=== PATIENT | female | born 1990 | race Caucasian/White ===

== ENCOUNTER 2022-03-26 12:08 | Emergency (ER) | payer MEDICAID ==
[~2022-03-26] VITALS: Ht 157.5 cm; Wt 107.0 kg
[~2022-03-26 12:08] MED LIST: IBUP-2030 PO; ONDA4TAB50 PO; TOPUD PO
[2022-03-26] MEDS ORDERED: HYDROCODONE/ACETAMINOPHEN 5/325MG TABLET PO STA (14:57)
[2022-03-26 15:27] LABS: BASOPHILS % 0.5 % (0.0-2.0); EOSINOPHILS % 0.8 % (0.0-5.0); HEMATOCRIT. 41.7 % (36.0-48.0); HEMOGLOBIN. 14.4 g/dL (12.0-16.0); LYMPHOCYTES % 23.1 % (20.0-50.0); MEAN CORPUSCULAR HEMOGLOBIN 29.3 pg (28.0-32.0); MEAN PLATELET VOLUME 7.9 fl (7.4-10.4); MONOCYTES % 5.3 % (2.0-8.0); NEUTROPHILS % 70.3 % (40.0-76.0); PLATELET 309 x1000/uL (130-400); RED BLOOD CELL COUNT 4.91 mill/uL (4.2-5.4); RED CELL DISTRIBUTION WIDTH 13.3 % (11.6-14.6)
[2022-03-26 15:47] LABS: HCG SCREEN NEGATIVE
[2022-03-26 16:26] LABS: CHLORIDE 107 mEq/L (98-107)
[2022-03-26] MEDS ORDERED: MORPHINE SULFATE 4 MG/ML CPJ (NOT FOR IM USE) IV STA (16:31)
[2022-03-26] MEDS ORDERED: ONDANSETRON HCL 4MG/2ML INJ IV STA (16:31)
[2022-03-26] MEDS ORDERED: SODIUM CHLORIDE 0.9% 1,000 ML IV ONE (16:45)
[2022-03-26] MEDS ORDERED: PIPERACILLIN/TAZ 3.375G PREMIX 50 ML IV ONE (16:45)
[2022-03-26] MEDS ORDERED: ACETAMINOPHEN 325MG TABLET PO ONE (17:00)
[2022-03-26 20:00] VITALS: BP 129/77
== END 2022-03-26 22:50 | disposition left against medical advice (07) ==
LOC: ER 12:08 → EDBEDREQ 19:01 → EDBEDREQTM 19:01 → ER 22:50 → CANBEDREQ 03-27 01:12
DX: K80.20 Calculus of gallbladder without cholecystitis without obstruction (principal)
CPT/HCPCS: 36415; 76705; 80053; 83690; 84703; 85025; 96365; 96366; 99284; J2543; J7030; J2270; J2405

== ENCOUNTER 2022-03-28 13:41 | Inpatient (IN) | payer MEDICAID ==
[~2022-03-28] VITALS: Ht 160 cm; Wt 79.8 kg
[2022-03-28] MEDS ORDERED: ONDANSETRON HCL 4MG/2ML INJ IV STA (16:02)
[2022-03-28] MEDS ORDERED: MORPHINE SULFATE 4 MG/ML CPJ (NOT FOR IM USE) IV STA (16:02)
[2022-03-28 16:15] LABS: BASOPHILS % 0.6 % (0.0-2.0); EOSINOPHILS % 1.3 % (0.0-5.0); HEMOGLOBIN. 14.3 g/dL (12.0-16.0); LYMPHOCYTES % 17.3 % (20.0-50.0); MEAN CORPUSCULAR HEMOGLOBIN 29.3 pg (28.0-32.0); MEAN CORPUSCULAR VOLUME 86.2 fL (81.0-99.0); MEAN PLATELET VOLUME 7.6 fl (7.4-10.4); MONOCYTES % 5.7 % (2.0-8.0); NEUTROPHILS % 75.1 % (40.0-76.0); PLATELET 314 x1000/uL (130-400); RED BLOOD CELL COUNT 4.88 mill/uL (4.2-5.4); RED CELL DISTRIBUTION WIDTH 13.3 % (11.6-14.6)
[2022-03-28] MEDS ORDERED: SODIUM CHLORIDE 0.9% 1,000 ML IV ONE (16:15)
[2022-03-28 16:24] LABS: INR 1.1; PROTHROMBIN TIME 11.8 sec (9.6-11.0)
[2022-03-28 16:25] LABS: CHLORIDE 108 mEq/L (98-107)
[2022-03-28 16:28] LABS: HCG SCREEN NEGATIVE
[2022-03-28] MEDS ORDERED: PIPERACILLIN/TAZ 3.375G PREMIX 50 ML IV ONE (18:45)
[2022-03-28] MEDS ORDERED: MORPHINE SULFATE 4 MG/ML CPJ (NOT FOR IM USE) IV ONE (19:00)
[2022-03-29] VITALS: BP 141/83
[2022-03-29] MEDS ORDERED: MORPHINE SULFATE 4 MG/ML CPJ (NOT FOR IM USE) IV PRN ×2 (05:45→11:00)
[2022-03-29] MEDS ORDERED: HYDROCODONE/ACETAMINOPHEN 5/325MG TABLET PO PRN ×2 (05:45→11:00)
[2022-03-29 08:00] VITALS: BP 137/80
[2022-03-29] MEDS ORDERED: DEXT 5%/0.45% NACL 1000ML 1,000 ML IV SCH (08:00)
[2022-03-29] MEDS: LEVOFLOXACIN 500MG PREMIX 100 ML IV SCH ×2 (08:00→09:11)
[2022-03-29] MEDS ORDERED: ONDANSETRON HCL 4MG/2ML INJ IV PRN ×2 (08:30→11:00)
[2022-03-29] MEDS ORDERED: MORPHINE SULFATE 2 MG/ML CPJ (NOT FOR IM USE) IV PRN (11:00)
[2022-03-29] MEDS ORDERED: NALOXONE HCL 0.4MG/ML VIAL IV PRN (11:00)
[2022-03-29] MEDS ORDERED: PROPOFOL 200MG/20ML VIAL IV ONE (11:32)
[2022-03-29] MEDS ORDERED: ROCURONIUM BROMIDE 10MG/ML VIAL 5ML IV ONE (11:33)
[2022-03-29] MEDS ORDERED: MIDAZOLAM HCL 2 MG/2 ML VIAL ONE (11:33)
[2022-03-29] MEDS ORDERED: BUPIVACAINE HCL/PF 0.5% (5MG/ML) 30ML ONE (11:46)
[2022-03-29] MEDS ORDERED: SKIN ADHESIVE 0.7 GM EA TOP ONE (11:46)
[2022-03-29] MEDS ORDERED: SUCCINYLCHOLINE CHLORIDE 200MG/10ML IV ONE (11:50)
[2022-03-29] MEDS ORDERED: KETOROLAC 30MG/ML VIAL ONE ×2 (11:51→12:21)
[2022-03-29] MEDS ORDERED: DEXAMETHASONE 4MG/ML 1ML VIAL ONE (11:51)
[2022-03-29] MEDS ORDERED: LIDOCAINE HCL 1% 10 MG/ML 10ML VIAL ONE (11:51)
[2022-03-29] MEDS ORDERED: ONDANSETRON HCL 4MG/2ML INJ ONE (11:51)
[2022-03-29] MEDS ORDERED: FENTANYL CITRATE/PF 50MCG/ML 2ML VIAL ONE (11:55)
[2022-03-29] MEDS ORDERED: FENTANYL CITRATE/PF 50MCG/ML 2ML VIAL IV PRN (12:00)
[2022-03-29] MEDS ORDERED: HYDROMORPHONE HCL/PF 2MG/ML CPJ IV PRN (12:00)
[2022-03-29] MEDS ORDERED: GLYCOPYRROLATE 0.2 MG/ML 2ML VIAL ONE (12:03)
[2022-03-29] MEDS: DEXT 5%/0.45% NACL KCL 20MEQ/L 1,000 ML IV SCH (13:00)
[2022-03-29] MEDS: SODIUM CHLORIDE 0.9% INJ 3ML FLUSH IVF SCH ×2 (14:24→20:41)
[2022-03-29] MEDS: HYDROCODONE/ACETAMINOPHEN 5/325MG TABLET PO PRN (14:35)
[2022-03-29 16:00] VITALS: BP 116/68
[2022-03-29 20:00] VITALS: BP 124/62
[2022-03-29] MEDS ORDERED: FAMOTIDINE 20MG TABLET PO SCH (21:00)
[2022-03-30] VITALS: BP 122/72
[2022-03-30] MEDS: HYDROCODONE/ACETAMINOPHEN 5/325MG TABLET PO PRN (00:45)
[2022-03-30] MEDS: DEXT 5%/0.45% NACL KCL 20MEQ/L 1,000 ML IV SCH (00:49)
[2022-03-30 04:00] VITALS: BP 104/59
[2022-03-30] MEDS: SODIUM CHLORIDE 0.9% INJ 3ML FLUSH IVF SCH (06:00)
[2022-03-30] MEDS: LEVOFLOXACIN 500MG PREMIX 100 ML IV SCH (07:57)
[2022-03-30 08:17] VITALS: BP 106/65
[2022-03-30 10:18] VITALS: BP 106/65
== END 2022-03-30 10:59 | disposition home or self-care (01) | DRG 263 ==
LOC: ER 13:59 → 6EST 21:01 → EDBEDREQ 21:12 → EDBEDREQTM 21:12 → ENRESERV 22:32 → 6EST 03-29 00:45
PROVIDERS: ADMIT Internal Medicine; ATTEND Internal Medicine
PROC: 0FT44ZZ Resection of Gallbladder, Percutaneous Endoscopic Approach (ICD-10-PCS; principal; 2022-03-29)
DX: K80.00 Calculus of gallbladder with acute cholecystitis without obstruction (principal); E66.9 Obesity, unspecified; Z20.822 Contact with and (suspected) exposure to COVID-19; Z68.31 Body mass index [BMI] 31.0-31.9, adult; Z79.899 Other long term (current) drug therapy
CPT/HCPCS: 36415; 71045; 74176; 80053; 84703; 85025; 86850; 86900; 87426; 88304; 93005; 99285; J0330; J1100; J1885; J1956; J2250; J2270; J2405; J2543; J2704; J3010; J3490; J7030